=== PATIENT | male | born 1995 | race Caucasian/White ===

== ENCOUNTER 2017-11-25 20:20 | Emergency (ER) | payer SELFPAY ==
[2017-11-25 21:12] LABS: ABSOLUTE BASOPHILS # (AUTO) 0.1 10^3/uL (0.0-0.2); ABSOLUTE EOSINOPHILS # (AUTO) 0.1 10^3/uL (0.0-0.6); ABSOLUTE LYMPHOCYTES (AUTO) 3.2 10^3/uL (0.5-4.7); ABSOLUTE MONOCYTES (AUTO) 1.2 10^3/uL (0.1-1.4); ABSOLUTE NEUT (AUTO) 11.6 10^3/uL (1.7-8.2); BASOPHILS % (AUTO) 0.7 % (0-2); EOSINOPHILS % (AUTO) 0.8 % (0-6); HEMATOCRIT 46.2 % (37.9-51.0); HEMOGLOBIN 15.9 g/dL (13.5-17.0); LYMPHOCYTES % (AUTO) 19.8 % (13-45); MEAN CORPUSCULAR HEMOGLOBIN 30.6 pg (27.0-33.4); MEAN CORPUSCULAR HGB CONC 34.3 g/dL (32.0-36.0); MEAN CORPUSCULAR VOLUME 89 fl (80-97); MONOCYTES % (AUTO) 7.6 % (3-13); PLATELET COUNT 374 10^3/uL (150-450); RED BLOOD COUNT 5.18 10^6/uL (4.35-5.55); RED CELL DISTRIBUTION WIDTH 13.4 % (11.5-14.0); SEGMENTED NEUTROPHILS % (AUTO) 71.1 % (42-78); TOTAL CELLS COUNTED % (AUTO) 100 %; WHITE BLOOD COUNT 16.3 10^3/uL (4.0-10.5)
[2017-11-25 21:24] LABS: ALANINE AMINOTRANSFERASE 79 U/L (21-72); ALBUMIN 4.9 g/dL (3.5-5.0); ALCOHOL 179 mg/dL (NONE DETECTED); ALKALINE PHOSPHATASE 95 U/L (38-126); ANION GAP 18 (5-19); ASPARTATE AMINO TRANSFERASE 156 U/L (17-59); BILIRUBIN,DIRECT 0.4 mg/dL (0.0-0.4); BILIRUBIN,TOTAL 0.4 mg/dL (0.2-1.3); BLOOD UREA NITROGEN 13 mg/dL (7-20); CALCIUM 9.4 mg/dL (8.4-10.2); CARBON DIOXIDE 22 mmol/L (22-30); CHLORIDE 108 mmol/L (98-107); GLUCOSE 92 mg/dL (75-110); POTASSIUM 3.9 mmol/L (3.6-5.0); SODIUM 148.3 mmol/L (137-145); TOTAL PROTEIN 7.9 g/dL (6.3-8.2)
[2017-11-25 21:26] LABS: ACETAMINOPHEN < 10 ug/mL (10-30); SALICYLATE < 1.0 mg/dL (2.0-20.0)
--- NOTE | 2017-11-25 22:23 | EKG REPORT ---
SEVERITY:- BORDERLINE ECG - SINUS TACHYCARDIA PROBABLE LEFT ATRIAL ABNORMALITY BORDERLINE LEFT AXIS DEVIATION : Confirmed by: Shabana Valdes 25-Nov-2017 22:22:33
--- NOTE | 2017-11-25 23:47 | ER Document Report ---
ED General - General Chief Complaint: Psych Problem Stated Complaint: ETOH Time Seen by Provider: 11/25/17 21:08 TRAVEL OUTSIDE OF THE [place] IN LAST 30 DAYS: No - HPI Patient complains to provider of: Psychiatric evaluation alcohol intoxication Notes: Patient coming in for evaluation. Patient was brought in by local law enforcement at the patient had been making threats to harm other people. Patient apparently did have access to guns which were according to report removed by local law enforcement. Patient upon my evaluation sleeping easily arousable. Patient does admit to drinking alcohol in excess over the last 48 hours. Patient does admit to making threats to harm other people stating "this is more self protection the pagans are after me" patient denies any other drug abuse. Patient states he is on medication to help out with alcoholism "Suboxone " patient also states he does take Prozac. Patient denies any other past medical history denies any SI. Past Medical History - Social History Smoking Status: Unknown if Ever Smoked Chew tobacco use (# tins/day): No Frequency of alcohol use: Heavy Family History: None Patient has suicidal ideation: No Patient has homicidal ideation: No Renal/ Medical History: Denies: Hx Peritoneal Dialysis Review of Systems - Review of Systems -: Yes ROS unobtainable due to patient's medical condition - Acute alcohol intoxication Physical Exam - Vital signs Vitals: Temp Pulse Resp BP Pulse Ox 98.7 F 118 H 16 123/74 97 11/25/17 20:45 11/25/17 20:45 11/25/17 20:45 11/25/17 20:45 11/25/17 20:45 Interpretation: Normal - General General appearance: Appears well, Alert Notes: Smells of alcohol - HEENT Head: Normocephalic, Atraumatic Eyes: Normal Pupils: PERRL - Respiratory Respiratory status: No respiratory distress Chest status: Nontender Breath sounds: Normal Chest palpation: Normal - Cardiovascular Rhythm: Regular Heart sounds: Normal auscultation Murmur: No - Abdominal Inspection: Normal Distension: No distension Bowel sounds: Normal Tenderness: Nontender Organomegaly: No organomegaly - Back Back: Normal, Nontender - Extremities General upper extremity: Normal inspection, Nontender, Normal color, Normal ROM , Normal temperature General lower extremity: Normal inspection, Nontender, Normal color, Normal ROM , Normal temperature, Normal weight bearing. No: Jessika's sign - Neurological Neuro grossly intact: Yes Cognition: Normal Orientation: AAOx4 [place] Coma Scale Eye Opening: Spontaneous Venus Coma Scale Verbal: Oriented [place] Coma Scale Motor: Obeys Commands [place] Coma Scale Total: 15 Speech: Normal Motor strength normal: LUE, RUE, LLE, RLE Sensory: Normal - Psychological Associated symptoms: Other - Intoxicated and agitated - Skin Skin Temperature: Warm Skin Moisture: Dry Skin Color: Normal Course - Re-evaluation Re-evalutation: 11/25/17 23:46 Laboratory studies show some signs of slight dehydration. Patient is able tolerate orals and will continue oral hydration therapy. At this time because the patient has had access to weapons and has been making threats I will place the patient on IVC paperwork for further psychiatric evaluation in the morning. - Vital Signs Vital signs: Temp Pulse Resp BP Pulse Ox 98.7 F 118 H 16 123/74 97 11/25/17 20:45 11/25/17 20:45 11/25/17 20:45 11/25/17 20:45 11/25/17 20:45 - Laboratory Result Diagrams: 11/25/17 21:00 11/25/17 21:00 Laboratory results interpreted by me: 11/25/17 11/25/17 21:00 21:00 WBC 16.3 H Absolute Neutrophils 11.6 H Sodium 148.3 H Chloride 108 H AST 156 H ALT 79 H Salicylates < 1.0 L Acetaminophen < 10 L Discharge - Discharge Clinical Impression: Homicidal ideation Condition: Fair Disposition: PSYCH HOSP/UNIT
[2017-11-26] MEDS ORDERED: TRAZODONE HCL 50 MG TABLET PO ONE (03:19)
[2017-11-26 03:31] LABS: APPEARANCE,URINE CLOUDY; BILIRUBIN,URINE NEGATIVE (NEGATIVE); COLOR,URINE YELLOW; GLUCOSE, URINE NEGATIVE (NEGATIVE); KETONES,URINE TRACE mg/dL (NEGATIVE); LEUKOCYTE ESTERASE,URINE NEGATIVE (NEGATIVE); NITRITE,URINE NEGATIVE (NEGATIVE); PROTEIN,URINE 30 mg/dL (NEGATIVE); URINE SPECIFIC GRAVITY 1.026; UROBILINOGEN,URINE NEGATIVE mg/dL (<2.0)
[2017-11-26 03:44] LABS: URINE AMPHETAMINES SCREEN NEGATIVE; URINE BARBITURATES SCREEN NEGATIVE; URINE BENZODIAZEPINES SCREEN NEGATIVE; URINE COCAINE SCREEN NEGATIVE; URINE MARIJUANA (THC) SCREEN NEGATIVE; URINE METHADONE SCREEN NEGATIVE; URINE PHENCYCLIDINE SCREEN NEGATIVE
[2017-11-26] MEDS ORDERED: NICOTINE 21 MG/24 HR PATCH.TD24 TD ONE (03:51)
--- NOTE | 2017-11-26 09:44 | ER Document Report ---
Doctor's Note Notes: 11/26/17 09:42 Rounds: Chart reviewed and patient interviewed briefly. Patient is here because of homicidal ideation. Also has been drinking heavily of alcohol. Vital signs are all normal. Lab studies were normal except for alcohol of 179, WBC of 16,300, and very minimal elevation of LFTs, not likely clinically significant. Patient appears to be medically stable for transfer or discharge. Indiana Mathews MD
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
[2017-11-26 11:44] VITALS: BP 110/75
== END 2017-11-26 11:44 | disposition home or self-care (01) ==
LOC: ER 20:20
DX: R45.850 Homicidal ideations (principal); F10.229 Alcohol dependence with intoxication, unspecified; Y90.6 Blood alcohol level of 120-199 mg/100 ml; Z79.891 Long term (current) use of opiate analgesic; Z79.899 Other long term (current) drug therapy
CPT/HCPCS: 36415; 80053; 80307; 81001; 85025; 93005; 93010; 99285